=== PATIENT | female | born 1975 | race Caucasian/White ===

== ENCOUNTER 2020-04-28 09:52 | Emergency (ER) | payer SELFPAY ==
[~2020-04-28] VITALS: Ht 170.2 cm; Wt 99.1 kg
[2020-04-28 09:58] VITALS: TEMP 97.5
[2020-04-28 13:30] VITALS: BP 136/88; PULSE 79
--- NOTE | 2020-04-28 13:35 | NUR ---
SW met with patient to discuss financial concerns and need of PCP. Patient would like to know if she is eligible for [employer] and Medicaid, or if she would be eligible to have her son-in-law place her on his depdent insurance. LEILANI placed a call for referral to [facility] in finance. LEILANI advised patient that [facility] would not be able to call her until tomorrow 04/29. Patient confirms understanding. Patient's RN is setting her up with an appointment at [facility] in [place] to have her assessed for medical needs and medication program eligibility. No further needs are identified at this time. Patient will discharge shortly.
[2020-04-28] MEDS ORDERED: PERCOCET 325 MG1 TA2 PO (23:06)
== END 2020-04-28 13:30 | disposition home or self-care (01) ==
LOC: COL.ER 09:52
DX: K83.8 Other specified diseases of biliary tract (principal); F17.200 Nicotine dependence, unspecified, uncomplicated
CPT/HCPCS: J1885

== ENCOUNTER 2020-04-28 20:17 | Emergency (ER) | payer SELFPAY ==
[~2020-04-28] VITALS: Ht 167.6 cm; Wt 99.1 kg
[2020-04-28 20:23] VITALS: TEMP 98.4
[2020-04-28 21:04] LABS: BASO % 0.6 % (0.0-2.0); EOS # 0.2 (0.0-0.7); EOS % 2.8 % (0-4.0); GRAN # 5.1 (1.4-6.5); GRAN % 72.2 % (42.2-75.2); HEMATOCRIT 39.9 % (37.0-47.0); HEMOGLOBIN 13.4 g/dl (12.5-16.0); LYMPH # 1.3 (1.2-3.4); LYMPH % 18.9 % (20.0-51.0); MEAN CELL VOLUME 87 fl (80.0-100.0); MEAN CORPUSCULAR HEMOGLOBIN 29 pg (27.0-31.0); MEAN CORPUSCULAR HGB CONC 34 g/dl (33.0-37.0); MEAN PLATELET VOLUME 12.5 fl (7.4-10.4); MONO # 0.4 (0.1-0.6); MONO % 5.4 % (1.7-9.3); PLATELET COUNT 140 K/mm3 (130-400); RED BLOOD COUNT 4.57 M/mm3 (4.10-5.30); REDCELL DISTRIBUTION WIDTH-CV 12.8 % (11.5-14.5)
[2020-04-28 21:16] LABS: ALBUMIN 4.2 gm/dL (3.5-5.0); BILIRUBIN,TOTAL 0.4 mg/dL (0.0-1.0); CALCIUM 9.4 mg/dL (8.4-10.2); CREATININE, serum 0.71 (0.52-1.25); POTASSIUM 3.9 mmol/L (3.4-5.0); TOTAL PROTEIN 7.1 gm/dL (6.4-8.2)
[2020-04-28 21:17] LABS: C-REACTIVE PROTEIN 0.5 mg/dL (0.0-0.9)
[2020-04-28 22:13] LABS: COLLECTION METHOD CLEAN CATCH
[2020-04-28 22:19] LABS: PH 6 (5-8); SQUAMOUS EPITHELIAL 0-2 /hpf; URINE APPEARANCE Clear; URINE BACTERIA None Seen /hpf; URINE BILIRUBIN Negative (NEGATIVE); URINE BLOOD Negative (NEGATIVE); URINE COLOR Straw; URINE GLUCOSE Negative (NEGATIVE); URINE KETONE Negative (NEGATIVE); URINE LEUKOCYTE ESTERASE Negative (NEGATIVE); URINE NITRATE Negative (NEGATIVE); URINE PROTEIN(semi-quant) Negative (NEGATIVE); URINE RBC 0-2 /hpf; URINE UROBILINOGEN Negative (NEGATIVE)
[2020-04-28] MEDS ORDERED: PERCOCET 325 MG1 TA2 PO (23:06)
[2020-04-28 23:19] VITALS: BP 144/80; PULSE 82
== END 2020-04-28 23:19 | disposition home or self-care (01) ==
LOC: COL.ER 20:17
PROVIDERS: Physician Assistant
DX: R10.11 Right upper quadrant pain (principal); F17.200 Nicotine dependence, unspecified, uncomplicated
CPT/HCPCS: J1170; J2550; J7030; Q9967

== ENCOUNTER → 2020-04-29 | Outpatient (CLI) | payer SELFPAY ==
[~2020-04-29] MED LIST: PERCOCET 325 MG1 TA2 PO
== END ==
LOC: COL.RAD 08:43
DX: R10.11 Right upper quadrant pain (principal)